=== PATIENT | female | born 1935 | race Caucasian/White ===

== ENCOUNTER → 2017-11-02 | Outpatient (CLI) | payer OTHER ==
[~2017-11-02] MED LIST: ALENDRONATE SOD70 MG PO; AMBIEN10 MG PO; CLONAZEPAM0.5 MG PO; COMBIVENT INH14.7 GM INH; COMBIVENT RESPIM4 GM IH; DOXYCYCLINE MO100 M1 PO; ETODOLAC400 MG PO; GABAPENTIN100 MG PO; IPRAT-ALBUT 0.5-3 ML NEB; KLONOPIN0.5 MG PO; LIPITOR40 MG PO; MEGACE400 MG/10 PO; MEGESTROL ACETA40 MG PO; NEXIUM40 MG PO; PREDNISONE20 MG PO; SIMVASTATIN20 MG PO; TRAZODONE HCL50 MG PO; TYLENOL WITH C1 EACH PO; Z ETODOLAC PO; Z.0.AMITRIPTYLINE H2 PO; Z.0.CELEBREX200 MG PO; Z.0.NEXIUM40 MG PO; Z.0.SIMVASTATIN80 MG PO; Z.2.TRIAMTERENE-HC1 PO; ZOLOFT100 MG PO
--- NOTE | 2017-11-02 11:06 | Diagnostic Imaging Report ---
PROCEDURE:CHEST 2 VIEWS TECHNIQUE:PA and lateral chest INDICATION:COPD COMPARISON:[facility], , CHEST 2 VIEWS, 03/09/2015, 13:54. FINDINGS: Lungs are symmetrically inflated. Relative paucity of interstitial lung markings. Thickening of the minor fissure without pleural effusion. Normal heart size. Mildly prominent central vasculature. Mildly tortuous thoracic aorta. Intact skeleton. CONCLUSION: 1. Findings of COPD without acute abnormality or interval change from March 2015. 2. Stable thickening along the minor fissure. Dictated by: Raúl Beavers M.D. on 11/02/2017 at 11:07 Electronically approved by: Raúl Beavers M.D. on 11/02/2017 at 11:07
--- NOTE | 2017-11-02 11:08 | Diagnostic Imaging Report ---
PROCEDURE:SHOULDER RIGHT COMPLETE TECHNIQUE:Internal and external rotation AP views right shoulder INDICATION:Right shoulder pain COMPARISON:None. FINDINGS: The right shoulder and imaged regional skeleton are intact. Pseudoarticulation of the humeral head and acromion. Joint space narrowing at the glenohumeral joint with small osteophytes. Regional soft tissues are unremarkable. CONCLUSION: Chronic rotator cuff tear with associated degenerative sequela. Dictated by: Raúl Beavers M.D. on 11/02/2017 at 11:08 Electronically approved by: Raúl Beavers M.D. on 11/02/2017 at 11:08
== END ==
LOC: RAD 10:35
PROVIDERS: ATTEND Family Medicine
DX: M25.511 Pain in right shoulder (principal); J44.9 Chronic obstructive pulmonary disease, unspecified
CPT/HCPCS: 71046